=== PATIENT | male | born 1955 ===

== ENCOUNTER 2018-01-23 17:17 | Emergency (ER) | payer SELFPAY ==
[2018-01-23 17:57] VITALS: BP 198/90
--- NOTE | 2018-01-23 18:29 | UC ---
General HPI - HPI Summary HPI Summary: 62 yo WM h/o HTN and hypercholesterolemia p/w extreme fatigue, mental fogginess and SOB x 1 day. Has been flying all day yesterday but states and wonders about a DVT. In triage has BP of 202/100. 198/90 (manual), + dysuria on and off and urine color is "more clear than usual". Dnies CP, palpitations, calf tenderness - History of Current Complaint Chief Complaint: UCLowerExtremity Stated Complaint: KNEE PAIN,CHILLS,TIREDNESS Time Seen by Provider: 01/23/18 18:13 Hx Obtained From: Patient Onset/Duration: Lasting Hours, Still Present Onset Severity: Severe Pain Intensity: 0 - Allergy/Home Medications Allergies/Adverse Reactions: Allergies Allergy/AdvReac Type Severity Reaction Status Date / Time No Known Allergies Allergy Verified 01/23/18 17:41 Home Medications: Home Medications Ranitidine TAB (NF) [Zantac TAB (NF)] 1 tab PO BID 01/23/18 [History Confirmed 01/23/18] PMH/Surg Hx/FS Hx/Imm Hx - Additional Past Medical History Additional PMH: HTN, hypercholesterolism Previously Healthy: Yes Cardiovascular History: Hypertension - Surgical History Surgical History: None - Social History Alcohol Use: Occasionally Substance Use Type: None Smoking Status (MU): Never Smoked Tobacco Review of Systems Constitutional: Chills, Fatigue Skin: Negative Eyes: Negative ENT: Negative Respiratory: Shortness Of Breath Cardiovascular: Negative Gastrointestinal: Negative Genitourinary: Negative Motor: Negative Neurovascular: Negative Musculoskeletal: Negative Neurological: Negative Psychological: Negative All Other Systems Reviewed And Are Negative: Yes Physical Exam Triage Information Reviewed: Yes Appearance: Ill-Appearing Vital Signs: Initial Vital Signs Temp 36.9 C 01/23/18 17:36 Pulse 80 01/23/18 17:36 Resp 12 01/23/18 17:36 BP 202/101 01/23/18 17:36 Pulse Ox 100 01/23/18 17:36 Eye Exam: Normal ENT Exam: Normal Dental Exam: Normal Neck exam: Normal Neck: Positive: 1 Respiratory Exam: Normal Cardiovascular Exam: Normal Abdominal Exam: Normal Musculoskeletal Exam: Normal Neurological Exam: Normal Psychological Exam: Other - anxious Skin Exam: Normal Course/Dx - Course Course Of Treatment: BP 202/101, manual 198/90 EKG- No STT elevation or TWI, HR 70-80s. Pt is weak with mild changes in mentation, will send to ER to r/o CVA, ACS vs infectious/metabolic etiology. Called DR Rene in ED and informed pt is being transferred via ambulance - Differential Dx - Multi-Symptom Provider Diagnoses: Acclerated HTN. Malignant HTN. Hypertensive crisis Discharge - Discharge Plan Condition: Fair Disposition: TRANS HIGHER LVL OF CARE FAC Discharge Disposition Comment: called ambulance and pt transferred to ER Patient Education Materials: Hypertensive Crisis (ED) Referrals: No Primary Care Phys,NOPCP [Primary Care Provider] -
== END 2018-01-23 18:50 | disposition short-term general hospital (02) ==
LOC: UCEAST 17:17
DX: I16.9 Hypertensive crisis, unspecified (principal); R53.83 Other fatigue; R06.02 Shortness of breath; E78.00 Pure hypercholesterolemia, unspecified
CPT/HCPCS: 87502; 93005; 99203; G0463

== ENCOUNTER 2018-01-23 19:11 | Emergency (ER) | payer SELFPAY ==
[2018-01-23] MEDS ORDERED: NS 0.9% 1000 ML* 1,000 ML IV ONE (19:38)
[2018-01-23] MEDS ORDERED: ALPRAZolam TAB* 0.25 MG PO ONE (19:41)
[2018-01-23 19:52] LABS: ABS Basophils 0.1 10^3/ul (0-0.2); ABS Eosinophils 0 10^3/ul (0-0.6); ABS Lymphocytes 1.2 10^3/ul (1.0-4.8); ABS Monocytes 0.4 10^3/ul (0-0.8); ABS Neutrophils 5.8 10^3/ul (1.5-7.7); ABS Nucleated RBC 0 10^3/ul; Eosinophil % 0.5 % (0-6); Hematocrit 40 % (42-52); Hemoglobin 13.9 g/dl (14.0-18.0); Lymphocyte % 15.6 % (25-47); Mean Corpuscular HGB Conc 35 g/dl (31-36); Mean Corpuscular Hemoglobin 31 pg (27-31); Mean Corpuscular Volume 88 fL (80-94); Mean Platelet Volume 8 um3 (7.4-10.4); Nucleated Red Blood Cells % 0.1; Platelet Count 245 10^3/ul (150-450); Red Blood Count 4.53 10^6/ul (4.0-5.4); Red Cell Distribution Width 13 % (10.5-15); White Blood Count 7.5 10^3/ul (3.5-10.8)
--- NOTE | 2018-01-23 20:09 | RAD ---
INDICATION: Confusion. COMPARISON: There are no prior studies available for comparison. TECHNIQUE: Contiguous axial sections of the brain were obtained from the skull base to the vertex without contrast. FINDINGS: The ventricles, cisterns and sulci are within normal limits. No significant focal abnormality or mass effect is seen. There is no evidence for hemorrhage. There is mucosal thickening and small air-fluid levels within the maxillary sinuses. The frontal, ethmoid and sphenoid sinuses appear clear. The mastoid air cells appear clear. IMPRESSION: 1. NO EVIDENCE FOR ACUTE INTRACRANIAL ABNORMALITY. 2. FINDINGS SUGGESTIVE OF MAXILLARY SINUSITIS.
[2018-01-23 20:10] LABS: EGFR Non-African American 71.6 (>60)
[2018-01-23 20:51] LABS: Urine Appearance Clear; Urine Blood Negative (Negative); Urine Color Yellow; Urine Ketones 1+ (Negative); Urine Protein Negative (Negative); Urine Specific Gravity 1.009 (1.010-1.030); Urine Urobilinogen Negative (Negative)
[2018-01-23 21:38] VITALS: BP 156/89
--- NOTE | 2018-01-24 14:31 | ED ---
Rebeca Harrington Gabriel, scribed for Saulo Rain MD on 01/23/18 at 1931 . Hypertension - HPI Summary HPI Summary: This patient is a 62 year old M BIBA to [facility] with a chief complaint of hypertension and not feeling well since earlier this morning. 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 Patient reports general malaise, chills, increased anxiety, breathing feels "off", decreased mental acuity, and extremities feeling cold. Patient denies visual changes and palpitations. Pt states he has never felt like this before but had some similar symptoms on but he went to bed early and felt better in the morning. Previously he was told he was borderline hypertensive but no medical intervention was taken. - History of Current Complaint Stated Complaint: HYPERTENSION Time Seen by Provider: 01/23/18 19:17 Hx Obtained From: Patient Onset/Duration: Started Hours Ago - since this morning, Still Present Timing: Constant Associated Signs & Symptoms: Negative - visual changes and palpitations, Other: - general malaise, chills, increased anxiety, breathing feels off, decreased mental acuity, and cold feeling in his extremities - Allergies/Home Medications Allergies/Adverse Reactions: Allergies Allergy/AdvReac Type Severity Reaction Status Date / Time No Known Allergies Allergy Verified 01/23/18 17:41 PMH/Surg Hx/FS Hx/Imm Hx Endocrine/Hematology History: Denies: Hx Anticoagulant Therapy, Hx Blood Disorders, Hx Blood Transfusions, Hx Bone Marrow Disease Cardiovascular History: Denies: Hx Atrial Fibrillation, Hx Auto Implanted Cardiovert Defib, Hx Cardiomegaly Respiratory History: Denies: Hx Asthma, Hx Chronic Obstructive Pulmonary Disease (COPD), Hx Cystic Fibrosis GI History: Reports: Hx Hiatal Hernia Denies: Hx Irritable Bowel Neurological History: Denies: Hx Developmental Delay, Hx Headaches Psychiatric History: Denies: Hx Post Traumatic Stress Disorder, Hx Inpatient Treatment, Hx Community Mental Health Tx Infectious Disease History: Reports: Traveled Outside the [place] in Last 30 Days - Family History Known Family History: Negative: Cardiac Disease, Hypertension, Respiratory Disease, Seizure Disorder - Social History Occupation: Employed Full-time Lives: With Family Alcohol Use: Occasionally Substance Use Type: Reports: None Smoking Status (MU): Never Smoked Tobacco Review of Systems Positive: Chills, Other - general malaise Negative: Blurred Vision Cardiovascular: Other - cold feeling in his extremities Positive: Other - hypertension . Negative: Palpitations Positive: Other - breathing feels off Neurological: Other - decreased mental acuity Positive: Anxious All Other Systems Reviewed And Are Negative: Yes Physical Exam - Summary Physical Exam Summary: Appearance: Well-appearing, no distress, Well-nourished Skin: Warm, color reflects adequate perfusion Head: Normal Head/Face inspection Eyes: Conjunctiva clear ENT: Normal inspection Neck: Supple, no nodes, no JVD. Respiratory: Lungs clear, Normal breath sounds, no respiratory distress Cardio: RRR, No murmur, pulses normal, brisk capillary refill Abdomen: soft, nontender, no guarding, no rebound Bowel sounds: present Musculoskeletal: Strength Intact/ ROM intact. No calf tenderness. No edema. Neuro: Alert, muscle tone normal, facial symmetry, speech normal, sensory/motor intact Psychological: Normal GCS:15 Triage Information Reviewed: Yes Vital Signs On Initial Exam: Initial Vitals Temp Pulse Resp BP Pulse Ox 36.6 C 77 16 182/91 100 01/23/18 19:28 01/23/18 19:28 01/23/18 19:28 01/23/18 19:28 01/23/18 19:28 Vital Signs Reviewed: Yes Diagnostics - Vital Signs Vital Signs Temp Pulse Resp BP Pulse Ox 01/23/18 19:49 16 01/23/18 19:28 36.6 C 77 16 182/91 100 - Laboratory Lab Results: Lab Results 01/23/18 01/23/18 01/23/18 Range/Units 19:27 19:27 20:42 WBC 7.5 (3.5-10.8) 10^3/ul RBC 4.53 (4.0-5.4) 10^6/ul Hgb 13.9 L (14.0-18.0) g/dl Hct 40 L (42-52) % MCV 88 (80-94) fL MCH 31 (27-31) pg MCHC 35 (31-36) g/dl RDW 13 (10.5-15) % Plt Count 245 (150-450) 10^3/ul MPV 8 (7.4-10.4) um3 Neut % (Auto) 77.8 (38-83) % Lymph % (Auto) 15.6 L (25-47) % [place] % (Auto) 5.2 (0-7) % Eos % (Auto) 0.5 (0-6) % Baso % (Auto) 0.9 (0-2) % Absolute Neuts (auto) 5.8 (1.5-7.7) 10^3/ul Absolute Lymphs (auto) 1.2 (1.0-4.8) 10^3/ul Absolute Monos (auto) 0.4 (0-0.8) 10^3/ul Absolute Eos (auto) 0 (0-0.6) 10^3/ul Absolute Basos (auto) 0.1 (0-0.2) 10^3/ul Absolute Nucleated RBC 0 10^3/ul Nucleated RBC % 0.1 Sodium 137 (133-145) mmol/L Potassium 3.5 (3.5-5.0) mmol/L Chloride 104 (101-111) mmol/L Carbon Dioxide 23 (22-32) mmol/L Anion Gap 10 (2-11) mmol/L BUN 19 (6-24) mg/dL Creatinine 1.05 (0.67-1.17) mg/dL Est GFR ( Amer) 92.0 (>60) Est GFR (Non-Af Amer) 71.6 (>60) BUN/Creatinine Ratio 18.1 (8-20) Glucose 121 H (70-100) mg/dL Calcium 9.7 (8.6-10.3) mg/dL Magnesium 2.0 (1.9-2.7) mg/dL Total Bilirubin 0.70 (0.2-1.0) mg/dL AST 19 (13-39) U/L ALT 22 (7-52) U/L Alkaline Phosphatase 38 (34-104) U/L Troponin I 0.00 (<0.04) ng/mL Total Protein 7.3 (6.4-8.9) g/dL Albumin 4.4 (3.2-5.2) g/dL Globulin 2.9 (2-4) g/dL Albumin/Globulin Ratio 1.5 (1-3) Urine Color Yellow Urine Appearance Clear Urine pH 6.0 (5-9) Ur Specific [place] 1.009 L (1.010-1.030) Urine Protein Negative (Negative) Urine Ketones 1+ A (Negative) Urine Blood Negative (Negative) Urine Nitrate Negative (Negative) Urine Bilirubin Negative (Negative) Urine Urobilinogen Negative (Negative) Ur Leukocyte Esterase Negative (Negative) Urine Glucose Negative (Negative) Result Diagrams: 01/23/18 19:27 01/23/18 19:27 Lab Statement: Any lab studies that have been ordered have been reviewed, and results considered in the medical decision making process. - CT CT Brain CT Interpretation Completed By: Radiologist - 1. NO EVIDENCE FOR ACUTE INTRACRANIAL ABNORMALITY. 2. FINDINGS SUGGESTIVE OF MAXILLARY SINUSITIS. ED physician has reviewed this radiology report. - EKG 19:53 Cardiac Rate: NL EKG Rhythm: Sinus Rhythm - ay 73 BPM EKG Interpretation: normal axis, normal intervals, no ST/T wave changes Re-Evaluation - Re-Evaluation First Eval Re-Evaluation Time: 20:55 Change: Improved - Pt symptomatically improved after po Xanax given. pt resting comfortably in bed. pt with negative w/u. Awaiting ddimer. will continue to monitor. Second Eval Re-Evaluation Time: 21:24 Change: Improved Comment: Pt symptomatically improved. pt resting comfortably in bed. pt symptoms most consistent with dehydration vs anxiety. pt hemodynamically stable. Pt to f/u with his PCP on arrival home. Hypertension Course/Dx - Diagnoses Differential Diagnosis/HQI PQRI: AAA, Cerebral Bleed, Drug Ingestion, Hypertension, Hypertensive Urgency, Other - anxiety. dehydration, arf Provider Diagnoses: Dehydration, Anxiety Discharge - Discharge Plan Condition: Improved Disposition: HOME Discharge Disposition Comment: Please follow up with your Physician on arrival back home. Patient Education Materials: Dehydration (ED) Referrals: No Primary Care Phys,NOPCP [Primary Care Provider] - Additional Instructions: Please continue to drink lots of fluids. The documentation as recorded by the Rebeca ivory Gabriel accurately reflects the service I personally performed and the decisions made by , Saulo Rain MD.
== END 2018-01-23 21:50 | disposition home or self-care (01) ==
LOC: ED 19:11
DX: I10 Essential (primary) hypertension (principal); E86.0 Dehydration; F41.9 Anxiety disorder, unspecified
CPT/HCPCS: 36415; 70450; 80053; 81003; 83735; 84484; 85025; 85379; 93005; 99283; A9270-GY